=== PATIENT | male | born 1945 | race Caucasian/White ===

== ENCOUNTER 2019-05-13 09:51 | Outpatient (RCR) | payer OTHER, SELFPAY ==
[2019-05-13 10:21] LABS: INR 1.8; Prothrombin Time 20.2 Seconds (11.1-14.7)
== END 2019-08-11 23:59 | disposition home or self-care (01) ==
LOC: ANHLAB 09:51
PROVIDERS: PCP Internal Medicine; Visit Provider Internal Medicine Cardiovascular Disease
DX: I82.90 Acute embolism and thrombosis of unspecified vein (principal)
CPT/HCPCS: 36415; 85610

== ENCOUNTER 2019-09-06 09:15 | Outpatient (CLI) | payer OTHER, SELFPAY ==
[2019-09-06 09:46] LABS: Basophils Percent Auto 0.2 % (0.2-1.2); Eosinophils Percent Auto 0.6 % (0-4.4); Hemoglobin 14.9 g/dL (14.0-18.0); Immature Granulocyte Absolute 0.02 K/mm3 (0.00-0.031); Immature Granulocyte Percent A 0.4 % (0-0.5); Lymphocytes Absolute Auto 1.24 K/mm3 (0.9-3.2); Lymphocytes Percent Auto 24.9 % (18.3-44.2); Mean Corpuscular HGB Conc 34.7 g/dl (32-36); Mean Corpuscular Hemoglobin 31.2 pg (26-34); Mean Corpuscular Volume 90.1 fl (80-100); Mean Platelet Volume 9.2 fl (7.4-10.4); Monocytes Absolute Auto 0.5 K/mm3 (0.1-0.6); Monocytes Percent Auto 10.7 % (2.6-8.5); Neutrophils Absolute Auto 3.1 K/mm3 (1.3-6.7); Neutrophils Percent Auto 63.2 % (45.5-73.1); Platelet Count Result 282 k/mm3 (150-375); Red Blood Count 4.77 M/mm3 (4.6-6.20)
[2019-09-06 09:58] LABS: Alanine Aminotransferase 28 U/L (4-50); Albumin Level 4.3 g/dL (3.5-5.1); Alkaline Phosphatase 72 U/L (38-126); Aspartate Amino Transferase 36 U/L (17-59); Bilirubin,Total 0.7 mg/dL (0.2-1.3); Blood Urea Nitrogen 8 mg/dL (9-20); Calcium 8.5 mg/dL (8.4-10.2); Carbon Dioxide 26 mmol/L (22-30); Chloride 97 mmol/L (98-107); Cholesterol 153 mg/dL (0-200); Estimated Glomerular Filt Rate > 60; Glucose 105 mg/dL (75-110); HDL Direct 91 mg/dL; Potassium 4.4 mmol/L (3.4-5.0); Sodium 131 mmol/L (137-145); Triglycerides 34 mg/dL (<150)
[2019-09-06 10:01] LABS: Hemoglobin A1C 5.6 % (<5.7)
[2019-09-06 10:11] LABS: LDL Cholesterol Direct 58 mg/dL
[2019-09-06 10:19] LABS: Creatinine Urine 84.4 mg/dL
[2019-09-06 10:28] LABS: MALB Creatinine Ratio < 7.1 mg/g (0-30); Microalbumin Urine Random < 6.0 mg/L (0-16.7); Prostate Specific Antigen 6.1 ng/mL (< OR = 4.0); Thyroid Stimulating Hormone 0.618 uIU/mL (0.465-4.680)
== END 2019-09-06 09:16 | disposition home or self-care (01) ==
PROVIDERS: PCP Internal Medicine; Visit Provider Internal Medicine
DX: R97.20 Elevated prostate specific antigen [PSA] (principal); E78.5 Hyperlipidemia, unspecified; I10 Essential (primary) hypertension; Z79.899 Other long term (current) drug therapy; Z12.5 Encounter for screening for malignant neoplasm of prostate
CPT/HCPCS: 36415; 80053; 80061; 82043; 83036; 84153; 84443; 85025; G0103

== ENCOUNTER 2019-10-28 09:56 | Outpatient (RCR) | payer OTHER, SELFPAY ==
[2019-08-20 11:53] LABS: INR 1.7; Prothrombin Time 19.3 Seconds (11.1-14.7)
[2019-09-06 10:00] LABS: INR 1.7; Prothrombin Time 19.3 Seconds (11.1-14.7)
== END 2019-11-18 23:59 | disposition home or self-care (01) ==
LOC: ANHLAB 09:56
PROVIDERS: PCP Internal Medicine; Visit Provider Internal Medicine Cardiovascular Disease
DX: Z51.81 Encounter for therapeutic drug level monitoring (principal); I82.90 Acute embolism and thrombosis of unspecified vein; Z79.01 Long term (current) use of anticoagulants
CPT/HCPCS: 36415; 85610

== ENCOUNTER 2020-03-10 10:26 | Outpatient (CLI) | payer OTHER, SELFPAY ==
[2020-03-10 11:18] LABS: Alanine Aminotransferase 26 U/L (4-50); Albumin Level 4.3 g/dL (3.5-5.1); Alkaline Phosphatase 53 U/L (38-126); Anion Gap 8 mmol/L (8-16); Aspartate Amino Transferase 33 U/L (17-59); Bilirubin,Total 0.8 mg/dL (0.2-1.3); Blood Urea Nitrogen 11 mg/dL (9-20); Calcium 8.4 mg/dL (8.4-10.2); Carbon Dioxide 26 mmol/L (22-30); Chloride 94 mmol/L (98-107); Estimated Glomerular Filt Rate > 60; Glucose 95 mg/dL (75-110); Potassium 4.4 mmol/L (3.4-5.0); Sodium 128 mmol/L (137-145)
[2020-03-10 11:47] LABS: Prostate Specific Antigen 4.9 ng/mL (< OR = 4.0)
== END 2020-03-10 10:27 | disposition home or self-care (01) ==
LOC: ANHLAB 10:29
PROVIDERS: PCP Internal Medicine; Visit Provider Internal Medicine
DX: R97.20 Elevated prostate specific antigen [PSA] (principal); I10 Essential (primary) hypertension
CPT/HCPCS: 36415; 80053; 84153; 85610

== ENCOUNTER 2020-03-10 10:30 | Outpatient (RCR) | payer OTHER, SELFPAY ==
[2020-01-20 12:35] LABS: Prothrombin Time 22.4 Seconds (11.1-14.7)
[2020-03-10 11:15] LABS: INR 1.7; Prothrombin Time 19.7 Seconds (11.1-14.7)
== END 2020-04-19 23:59 | disposition home or self-care (01) ==
LOC: ANHLAB 10:30
PROVIDERS: PCP Internal Medicine; Visit Provider Internal Medicine Cardiovascular Disease
DX: Z51.81 Encounter for therapeutic drug level monitoring (principal); I82.90 Acute embolism and thrombosis of unspecified vein; Z79.01 Long term (current) use of anticoagulants
CPT/HCPCS: 36415; 85610

== ENCOUNTER 2020-06-22 12:07 | Outpatient (RCR) | payer OTHER, SELFPAY ==
[2020-04-21 11:58] LABS: INR 1.9; Prothrombin Time 21.5 Seconds (11.1-14.7)
[2020-05-06 11:42] LABS: INR 1.9; Prothrombin Time 22.3 Seconds (11.1-14.7)
[2020-06-16 11:04] LABS: INR 1.7; Prothrombin Time 20.8 Seconds (11.1-14.7)
[2020-06-22 12:43] LABS: INR 1.8; Prothrombin Time 21.2 Seconds (11.1-14.7)
== END 2020-07-20 23:59 | disposition home or self-care (01) ==
LOC: ANHLAB 12:07
PROVIDERS: PCP Internal Medicine; Visit Provider Internal Medicine Cardiovascular Disease
DX: Z51.81 Encounter for therapeutic drug level monitoring (principal); I82.90 Acute embolism and thrombosis of unspecified vein; Z79.01 Long term (current) use of anticoagulants
CPT/HCPCS: 36415; 85610

== ENCOUNTER 2020-07-06 03:16 | Emergency (ER) | payer OTHER, SELFPAY ==
--- NOTE | ~2020-07-06 | XR_ITS ---
XR chest 1V 07/06/2020 03:59 Indication: Transient alteration of awareness Procedure: AP view of the chest Comparison: Comparison to multiple prior studies sequentially, with oldest reviewed study dated 01/2011. Findings: Status post median sternotomy for CABG. Heart size normal. There is atherosclerosis of the aorta. No focal air space disease, pulmonary edema, pleural effusion or suspected pneumothorax. Impression: 1: No acute cardiopulmonary disease. Reviewed, dictated and finalized at location A. ATRICIAN/MEDICAL DOCTOR Impression: 1: No acute cardiopulmonary disease.
--- NOTE | ~2020-07-06 | CT_ITS ---
EXAMINATION: CT brain wo con DATE: 07/06/2020 03:56 INDICATION: Acute altered mental status. Headache. Patient on Coumadin. TECHNIQUE: Computed tomography (CT) of the head was performed without intravenous contrast. The dose- length product was 681.00 mGy-cm. The mA was adjusted according to patient size. Iterative reconstruc tion technique was employed. COMPARISON: CT dated 11/26/2015 FINDINGS: There is an acute hemorrhage of the right occipital lobe measuring 5 x 4.1 x 2.7 cm with ad jacent vasogenic edema causing effacement of the overlying cortical sulci. There is mild mass effect on the right lateral ventricle. No evidence for herniation. No midline shift. Basilar cisterns are pa tent. There are scattered mild periventricular and subcortical white matter changes, most likely rela ugo to small vessel ischemic disease (microangiopathy). IMPRESSION: 1. Acute right occipital lobe hemorrhage with mild mass effect. [facility] radiologist verbally discussed this case with clinician as per documentation in their report, which was faxed and scanned into PACS with this exam. Reviewed, dictated and finalized at location A. ORK SYSTEMS INTEGRATOR IMPRESSION: 1. Acute right occipital lobe hemorrhage with mild mass effect. [facility] radiologist verbally discussed this case with clinician as per document ation in their report, which was faxed and scanned into PACS with this exam.
[2020-07-06 03:26] VITALS: BP 146/84; PULSE 68; RESP 24; TEMP 36.2; O2SAT 100
--- NOTE | 2020-07-06 03:27 | ECG_ITS ---
Measurements Intervals [place] Rate: 67 P: 36 CO: 172 QRS: 46 QRSD: 92 T: 57 QT: 403 QTc: 426 Interpretive Statements SINUS RHYTHM NORMAL ECG Electronically Signed On 07-06-2020 7:11:05 RUBBER DOWN by Jude Conroy D.O.
[2020-07-06 03:50] LABS: Basophils Percent Auto 0.2 % (0.2-1.2); Eosinophils Absolute Auto 0.1 K/mm3 (0-0.3); Eosinophils Percent Auto 0.8 % (0-4.4); Hematocrit 43.1 % (42.0-52.0); Hemoglobin 14.7 g/dL (14.0-18.0); Immature Granulocyte Absolute 0.04 K/mm3 (0.00-0.031); Immature Granulocyte Percent A 0.5 % (0-0.5); Lymphocytes Percent Auto 21.8 % (18.3-44.2); Mean Corpuscular HGB Conc 34.1 g/dl (32-36); Mean Corpuscular Hemoglobin 31.6 pg (26-34); Mean Corpuscular Volume 92.7 fl (80-100); Mean Platelet Volume 9.1 fl (7.4-10.4); Monocytes Absolute Auto 0.9 K/mm3 (0.1-0.6); Monocytes Percent Auto 10.2 % (2.6-8.5); Neutrophils Absolute Auto 5.8 K/mm3 (1.3-6.7); Neutrophils Percent Auto 66.5 % (45.5-73.1); Platelet Count Result 236 k/mm3 (150-375); Red Blood Count 4.65 M/mm3 (4.6-6.20); Red Cell Distribution Width 13.1 % (11.5-14.5); White Blood Count 8.7 K/mm3 (4.5-10.0)
[2020-07-06 03:50] LABS: Glucose Point of Care 113 (65-105)
--- NOTE | 2020-07-06 03:54 | PC.NURSE ---
pt to CT via stretcher
[2020-07-06 04:02] LABS: Prothrombin Time 23.1 Seconds (11.1-14.7)
[2020-07-06 04:03] LABS: Partial Thromboplastin Time 44.2 SECONDS (22.3-36.8)
[2020-07-06 04:04] LABS: Ammonia < 9 umol/L (9-30); Ethanol < 10 mg/dL (<10); Lactic Acid Reflex 1.2 mmol/L (0.7-2.1)
[2020-07-06 04:05] LABS: Alanine Aminotransferase 21 U/L (4-50); Albumin Level 4.3 g/dL (3.5-5.1); Alkaline Phosphatase 62 U/L (38-126); Anion Gap 5 mmol/L (8-16); Aspartate Amino Transferase 26 U/L (17-59); Bilirubin,Total 0.5 mg/dL (0.2-1.3); Blood Urea Nitrogen 11 mg/dL (9-20); Calcium 8.6 mg/dL (8.4-10.2); Carbon Dioxide 32 mmol/L (22-30); Chloride 93 mmol/L (98-107); Estimated CRCL calculation 85 ml/min; Estimated Glomerular Filt Rate > 60; Glucose 118 mg/dL (75-110); Potassium 4.5 mmol/L (3.4-5.0); Sodium 130 mmol/L (137-145)
--- NOTE | 2020-07-06 04:08 | ED.GENADULT ---
HPI - General Adult General Chief complaint: Altered Mental Status Stated complaint: Blurry vision, confusion Time Seen by Provider: 07/06/20 03:23 History of Present Illness HPI narrative: Patient is 75-year-old gentleman who presents the emergency department with chief complaint of headache and confusion. Patient reports this evening he started getting confused whenever his daughter came home from work around 7PM the noticed this evening it got worse when he tried to get up and take a shower in the middle of the night and the daughter decided to bring him to the emergency department for evaluation. Patient has been on Coumadin and reports that his head does not feel right. The patient is able to answer questions in the room and provide most history but does appear somewhat frustrated. Patient denies any history of trauma Related Data Home Medications Medication Instructions Recorded Confirmed aspirin 81 mg tablet,delayed 81 mg PO DAILY 08/16/19 03/10/20 release warfarin 5 mg tablet 5 mg PO DAILY 08/16/19 03/10/20 Allergies Allergy/AdvReac Type Severity Reaction Status Date / Time Penicillins Allergy Unknown Swelling Verified 03/10/20 08:54 Review of Systems Review of Systems: Narrative: A 10 system review of systems was completed on the patient and is negative except for what is stated in the HPI. Nursing and ancillary documentation was reviewed. 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 HEAD: Normocephalic, atraumatic. EYES: PERRLA and EOMI. ENT: Nares clear, no rhinorrhea or epistaxis. Mucous membranes moist. NECK: Supple. CHEST: Clear to auscultation. No respiratory distress. HEART: Regular rate and rhythm. No murmur heard. Normal peripheral pulses. ABDOMEN: Soft, nontender, nondistended, normal active bowel sounds. EXTREMITIES: Normal range of motion. No edema. SKIN: Warm, dry, no rash. NEURO: No focal deficits. Alert and oriented x3. PSYCH: Normal mood and affect. Course Course Emergency Course: CT head shows evidence of a acute lobar hemorrhage in the right occipital lobe measuring 4.1 x 2.7 x 5.0 cm there is some adjacent edema and resulting effacement of the overlying sulcal and mass-effect of the occipital horn of the right lateral ventricle. There is a small amount of subarachnoid hemorrhage there is no evidence of herniation Patient's INR is 2.0 10 mg of vitamin K was ordered for the patient as well as Kcentra in discussion with the patient and the patient's family the patient had opted to be transferred to [place] Vital Signs Vital signs: Vital Signs Temperature 36.2 C L 07/06/20 03:26 Pulse Rate 68 07/06/20 03:26 Respiratory Rate 24 H 07/06/20 03:26 Blood Pressure 146/84 H 07/06/20 03:26 Pulse Oximetry 100 07/06/20 03:26 Temperature 36.2 C L 07/06/20 03:26 Pulse Rate 69 07/06/20 06:46 Respiratory Rate 23 H 07/06/20 06:46 Blood Pressure 140/83 07/06/20 06:46 Pulse Oximetry 100 07/06/20 06:46 Medical Decision Making Vital Signs Vital Signs: Vital Signs Temperature 36.2 C L 07/06/20 03:26 Pulse Rate 68 07/06/20 03:26 Respiratory Rate 24 H 07/06/20 03:26 Blood Pressure 146/84 H 07/06/20 03:26 Pulse Oximetry 100 07/06/20 03:26 Temperature 36.2 C L 07/06/20 03:26 Pulse Rate 69 07/06/20 06:46 Respiratory Rate 23 H 07/06/20 06:46 Blood Pressure 140/83 07/06/20 06:46 Pulse Oximetry 100 07/06/20 06:46 Lab Data Result diagrams: 07/06/20 03:39 07/06/20 03:39 Labs: Lab Results 07/06/20 07/06/20 07/06/20 Range/Units 03:39
[2020-07-06 04:17] LABS: Troponin I < 0.012 ng/mL (0.000-0.034)
[2020-07-06] MEDS: SODIUM CHLORIDE 0.9% IV 1,000 ML 999 ML IV CONT (04:18)
[2020-07-06] MEDS: PHYTONADIONE ADULT INJ 10 MG in DEXTROSE 5% IN WATER 50 ML 100 MG IVPB (04:18)
[2020-07-06] MEDS: levETIRAcetam 500MG/NACL 100ML 500 MG/100 ML BAG 400 MG IVPB (04:41)
--- NOTE | 2020-07-06 04:46 | PC.NURSE ---
called [facility] to request transport. ETA [id number] [facility] and [facility] declined due to shift change coming up. [facility] declined - no transfer truck on duty.
[2020-07-06 04:51] VITALS: BP 156/81; PULSE 78; RESP 23; O2SAT 99
--- NOTE | 2020-07-06 04:55 | PC.NURSE ---
called [facility] and put trip #[phone] on hold. Patient is waiting for an ICU bed.
[2020-07-06 05:15] VITALS: BP 145/94; PULSE 63; RESP 19; O2SAT 98
[2020-07-06 05:16] LABS: Add Urine Microscopic? YES; Appearance Urine Clear (Clear); Bilirubin Urine Negative (Negative); Blood Urine 2+ (Negative); Color Urine Yellow (Yellow); Glucose Urine UA Negative (Negative); Ketones Urine Negative (Negative); Leukocyte Esterase Ur Negative LEU/UL (Negative); Nitrate Urine Negative (Negative); Protein Urine Negative (Negative); Urobilinogen Urine Negative mg/dL (<2.0); WBC Urine 0-3 /hpf
--- NOTE | 2020-07-06 05:22 | PC.NURSE ---
Called [facility] for transport. ETA [phone]
--- NOTE | 2020-07-06 05:25 | PC.NURSE ---
this rn spoke to vitor barron at [facility] and gave her report on pt. pt is going to room 9410 in the ICU on the main campus. notified. ed press secretary calling for ambulance at this time.
[2020-07-06 05:29] LABS: Benzodiazepines Screen Urine Negative (Negative)
[2020-07-06 05:49] LABS: Amphetamine Screen Urine Negative (Negative); Cannabinoid Screen Urine Positive (Negative); Cocaine Screen Urine Negative (Negative); Methadone Screen Urine Negative (Negative); Opiate Screen Urine Negative (Negative); Phencyclidine Screen Urine Negative (Negative)
[2020-07-06 05:50] VITALS: BP 104/91; PULSE 71; RESP 25; O2SAT 99
[2020-07-06 06:12] VITALS: BP 122/91; PULSE 66; RESP 19; O2SAT 97
[2020-07-06 06:12] LABS: Barbiturate Screen Urine Negative (Negative)
[2020-07-06 06:46] VITALS: BP 140/83; PULSE 69; RESP 23; O2SAT 100
== END 2020-07-06 06:58 | disposition short-term general hospital (02) ==
PROVIDERS: Emergency Provider Emergency Medicine; PCP Internal Medicine
DX: I61.9 Nontraumatic intracerebral hemorrhage, unspecified (principal); F17.200 Nicotine dependence, unspecified, uncomplicated; Z79.82 Long term (current) use of aspirin; Z79.01 Long term (current) use of anticoagulants; Z86.73 Personal history of transient ischemic attack (TIA), and cerebral infarction without residual deficits; Z95.1 Presence of aortocoronary bypass graft; H53.8 Other visual disturbances
CPT/HCPCS: 36415; 70450; 71045; 80053; 80307; 81001; 82140; 82948; 83605; 84484; 85025; 85610; 85730; 93005; 96361; 96365; 96375; 99291; C9132; J1953; J3430; J7030

== ENCOUNTER 2020-08-20 09:44 | Outpatient (CLI) | payer OTHER, SELFPAY ==
[2020-08-20 10:09] LABS: Basophils Percent Auto 0.3 % (0.2-1.2); Eosinophils Percent Auto 0.6 % (0-4.4); Hematocrit 37.7 % (42.0-52.0); Hemoglobin 12.4 g/dL (14.0-18.0); Immature Granulocyte Absolute 0.02 K/mm3 (0.00-0.031); Immature Granulocyte Percent A 0.3 % (0-0.5); Lymphocytes Absolute Auto 1.25 K/mm3 (0.9-3.2); Lymphocytes Percent Auto 18.6 % (18.3-44.2); Mean Corpuscular HGB Conc 32.9 g/dl (32-36); Mean Corpuscular Hemoglobin 30.6 pg (26-34); Mean Corpuscular Volume 93.1 fl (80-100); Mean Platelet Volume 8.8 fl (7.4-10.4); Monocytes Absolute Auto 0.5 K/mm3 (0.1-0.6); Monocytes Percent Auto 7.9 % (2.6-8.5); Neutrophils Absolute Auto 4.9 K/mm3 (1.3-6.7); Neutrophils Percent Auto 72.3 % (45.5-73.1); Platelet Count Result 293 k/mm3 (150-375); Red Blood Count 4.05 M/mm3 (4.6-6.20); Red Cell Distribution Width 13.2 % (11.5-14.5); White Blood Count 6.7 K/mm3 (4.5-10.0)
[2020-08-20 10:27] LABS: Alanine Aminotransferase 30 U/L (4-50); Alkaline Phosphatase 69 U/L (38-126); Anion Gap 6 mmol/L (8-16); Aspartate Amino Transferase 27 U/L (17-59); Bilirubin,Total 0.3 mg/dL (0.2-1.3); Blood Urea Nitrogen 11 mg/dL (9-20); Calcium 8.7 mg/dL (8.4-10.2); Carbon Dioxide 28 mmol/L (22-30); Chloride 100 mmol/L (98-107); Estimated Glomerular Filt Rate > 60; Glucose 112 mg/dL (75-110); Potassium 4.4 mmol/L (3.4-5.0); Sodium 134 mmol/L (137-145)
== END 2020-08-20 09:45 | disposition home or self-care (01) ==
LOC: ANHLAB 09:48
PROVIDERS: PCP Internal Medicine; Visit Provider Internal Medicine
DX: E87.1 Hypo-osmolality and hyponatremia (principal); I10 Essential (primary) hypertension
CPT/HCPCS: 36415; 80053; 85025

== ENCOUNTER 2021-08-09 12:01 | Outpatient (CLI) | payer MEDICARE, SELFPAY ==
[2021-08-09 13:11] LABS: Basophils Percent Auto 0.6 % (0.2-1.2); Eosinophils Percent Auto 0.8 % (0-4.4); Hematocrit 44.3 % (42.0-52.0); Hemoglobin 15.1 g/dL (14.0-18.0); Immature Granulocyte Absolute 0.01 K/mm3 (0.00-0.031); Immature Granulocyte Percent A 0.2 % (0-0.5); Lymphocytes Absolute Auto 1.37 K/mm3 (0.9-3.2); Mean Corpuscular HGB Conc 34.1 g/dl (32-36); Mean Corpuscular Hemoglobin 31.4 pg (26-34); Mean Corpuscular Volume 92.1 fl (80-100); Mean Platelet Volume 9.3 fl (7.4-10.4); Monocytes Absolute Auto 0.5 K/mm3 (0.1-0.6); Monocytes Percent Auto 9.7 % (2.6-8.5); Neutrophils Absolute Auto 3.3 K/mm3 (1.3-6.7); Neutrophils Percent Auto 62.7 % (45.5-73.1); Platelet Count Result 251 k/mm3 (150-375); Red Blood Count 4.81 M/mm3 (4.6-6.20); Red Cell Distribution Width 12.8 % (11.5-14.5); White Blood Count 5.3 K/mm3 (4.5-10.0)
[2021-08-09 13:21] LABS: Alanine Aminotransferase 24 U/L (4-50); Albumin Level 4.5 g/dL (3.5-5.1); Alkaline Phosphatase 66 U/L (38-126); Anion Gap 4 mmol/L (8-16); Aspartate Amino Transferase 25 U/L (17-59); Bilirubin,Total 0.7 mg/dL (0.2-1.3); Blood Urea Nitrogen 7 mg/dL (9-20); Calcium 8.9 mg/dL (8.4-10.2); Carbon Dioxide 27 mmol/L (22-30); Chloride 99 mmol/L (98-107); Cholesterol 141 mg/dL (0-200); Estimated Glomerular Filt Rate > 60; Glucose 97 mg/dL (65-110); HDL Direct 63 mg/dL; Potassium 4.4 mmol/L (3.4-5.0); Sodium 130 mmol/L (137-145); Triglycerides 46 mg/dL (<150)
[2021-08-09 13:33] LABS: LDL Cholesterol Direct 50 mg/dL
[2021-08-09 13:54] LABS: Prostate Specific Antigen 5.6 ng/mL (< OR = 4.0)
[2021-08-09 14:07] LABS: Vitamin D 25 Hydroxy 18.2 ng/mL
== END 2021-08-09 12:02 | disposition home or self-care (01) ==
PROVIDERS: PCP Internal Medicine; Visit Provider Internal Medicine
DX: I25.10 Atherosclerotic heart disease of native coronary artery without angina pectoris (principal); E87.1 Hypo-osmolality and hyponatremia; F41.9 Anxiety disorder, unspecified; I61.9 Nontraumatic intracerebral hemorrhage, unspecified; Z72.89 Other problems related to lifestyle; I71.2 Thoracic aortic aneurysm, without rupture; I25.79 Atherosclerosis of other coronary artery bypass graft(s) with angina pectoris; J44.9 Chronic obstructive pulmonary disease, unspecified; E78.5 Hyperlipidemia, unspecified; I10 Essential (primary) hypertension; R97.20 Elevated prostate specific antigen [PSA]; Z79.899 Other long term (current) drug therapy; Z12.5 Encounter for screening for malignant neoplasm of prostate
CPT/HCPCS: 36415; 80053; 80061; 82306; 84153; 84443; 85025; G0103

== ENCOUNTER 2021-08-16 07:59 | Outpatient (CLI) | payer MEDICARE, SELFPAY ==
--- NOTE | 2021-08-16 08:28 | ECHO_ITS ---
Patient Info Name: Bi Sandoval Age: 76 years : 1945 Gender: Male Ht: 68 in Wt: 180 lbs BSA: 2.00 m2 HR: 71 bpm BP: 133 / 80 mmHg Heart Rhythm: Sinus Rhythm Technical Quality: Fair Exam Date: 08/16/2021 8:39 AM Exam Location: [facility] Patient Status: Outpatient Admit Date: 08/16/2021 Staff Ordering Physician: Vladimir Stockton MD Seismograph Shooter: Annabelle Ledesma RDCS Attending Provider: Vladimir Stockton MD Exam Type: CA echo doppler w bubble study Study Info Indications G45.9 - Transient cerebral ischemic attack, unspecified Complete two-dimensional, color flow and Doppler transthoracic echocardiogram is performed with agitated saline. Contrast/Agitated Saline Contrast/Ag. Saline: Agitated Saline Amount: 20.00 ml New IV Access: Left and Inner Forearm Site Condition: IV removed and No extravasation Summary 1. Left ventricular chamber dimension is mildly enlarged. 2. Left ventricular systolic function is normal, estimated at 55%. 3. There is mildly increased left ventricular wall thickness. 4. The left ventricular diastolic function is grade I diastolic dysfunction. 5. Left atrial chamber dimension is moderately enlarged. 6. There is mild tricuspid valve regurgitation. 7. No pulmonary hypertension, estimated pulmonary arterial systolic pressure is 26 mmHg. 8. No evidence for interatrial shunt with injection of agitated saline with or without Valsalva. Recommendations * Consider transesophageal echocardiogram if clinically indicated. Left Ventricle Left ventricular chamber dimension is mildly enlarged. Left ventricular systolic function is normal, estimated at 55%. There is mildly increased left ventricular wall thickness. The left ventricular diastolic function is grade I diastolic dysfunction. Global longitudinal strain is mildly elevated at -14 %. Right Ventricle Right ventricular chamber dimension is normal. Right ventricular systolic function is normal. Left Atria Left atrial chamber dimension is moderately enlarged. Right Atria Right atrial chamber dimension is mildly enlarged. Atrial Septum No evidence for interatrial shunt with injection of agitated saline with or without Valsalva. Aortic Valve The aortic valve is trileaflet. There is no aortic valve stenosis. There is trace aortic valve regurgitation. Pulmonic Valve The pulmonic valve is not well visualized. Mitral Valve The mitral valve has normal leaflets. There is trace mitral valve regurgitation. The mitral valve annulus is mildly calcified. Tricuspid Valve The tricuspid valve leaflets are normal. There is mild tricuspid valve regurgitation. No pulmonary hypertension, estimated pulmonary arterial systolic pressure is 26 mmHg. Pericardium/Pleural The pericardium appears normal. There is small pericardial effusion. Inferior Vena Cava Normal inferior vena cava with >50% collapse upon inspiration consistent with normal right atrial pressure, 5 mmHg. Aorta The aortic root size at the sinus of Valsalva is mildly dilated. There is mild aortic atherosclerosis. Left Ventricular Outflow Tract Name Value Normal LVOT 2D LVOT Diameter
== END 2021-08-16 08:00 | disposition home or self-care (01) ==
PROVIDERS: PCP Internal Medicine; Visit Provider Internal Medicine
DX: G45.9 Transient cerebral ischemic attack, unspecified (principal)
CPT/HCPCS: 93306; 96375

== ENCOUNTER 2021-12-08 09:45 | Outpatient (CLI) | payer OTHER, SELFPAY ==
[2021-12-08 10:41] LABS: Alanine Aminotransferase 27 U/L (6-50); Albumin Level 4.5 g/dL (3.5-5.1); Alkaline Phosphatase 67 U/L (38-126); Anion Gap 7 mmol/L (8-16); Aspartate Amino Transferase 28 U/L (17-59); Bilirubin,Total 0.6 mg/dL (0.2-1.3); Blood Urea Nitrogen 9 mg/dL (9-20); Calcium 8.5 mg/dL (8.4-10.2); Carbon Dioxide 27 mmol/L (22-30); Chloride 98 mmol/L (98-107); Estimated Glomerular Filt Rate > 60; Glucose 107 mg/dL (65-110); Potassium 4.7 mmol/L (3.4-5.0); Sodium 132 mmol/L (137-145)
[2021-12-08 11:13] LABS: Prostate Specific Antigen 4.7 ng/mL (< OR = 4.0)
[2021-12-08 11:36] LABS: Vitamin D 25 Hydroxy 52.9 ng/mL
== END 2021-12-08 09:46 | disposition home or self-care (01) ==
PROVIDERS: PCP Internal Medicine; Visit Provider Internal Medicine
DX: R97.20 Elevated prostate specific antigen [PSA] (principal); E55.9 Vitamin D deficiency, unspecified; F41.9 Anxiety disorder, unspecified; I10 Essential (primary) hypertension
CPT/HCPCS: 36415; 80053; 82306; 84153

== ENCOUNTER 2022-09-14 14:35 | Outpatient (CLI) | payer OTHER, SELFPAY ==
[2022-09-14 15:35] LABS: Alanine Aminotransferase 28 U/L (6-50); Albumin Level 3.9 g/dL (3.5-5.1); Alkaline Phosphatase 59 U/L (38-126); Anion Gap 5 mmol/L (8-16); Aspartate Amino Transferase 27 U/L (17-59); Bilirubin,Total 0.6 mg/dL (0.2-1.3); Blood Urea Nitrogen 10 mg/dL (9-20); Calcium 8.4 mg/dL (8.4-10.2); Carbon Dioxide 26 mmol/L (22-30); Chloride 99 mmol/L (98-107); Estimated Glomerular Filt Rate > 60; Glucose 97 mg/dL (65-110); Potassium 4.3 mmol/L (3.4-5.0); Sodium 130 mmol/L (137-145)
[2022-09-14 16:04] LABS: Thyroid Stimulating Hormone 0.956 uIU/mL (0.465-4.680)
[2022-09-16 12:21] LABS: Levetiracetam Keppra 31.2 mcg/mL (6.0-46.0)
== END 2022-09-14 14:36 | disposition home or self-care (01) ==
PROVIDERS: PCP Internal Medicine; Visit Provider Internal Medicine
DX: F10.10 Alcohol abuse, uncomplicated (principal); I10 Essential (primary) hypertension; G40.909 Epilepsy, unspecified, not intractable, without status epilepticus
CPT/HCPCS: 36415; 80053; 80177; 82607; 84443

== ENCOUNTER 2022-10-06 13:12 | Emergency (ER) | payer OTHER, SELFPAY ==
[2022-10-06 13:14] VITALS: BP 152/78; PULSE 71; RESP 16; TEMP 36.1; O2SAT 100
--- NOTE | 2022-10-06 13:25 | ECG_ITS ---
Measurements Intervals [place] Rate: 77 P: 59 MT: 180 QRS: 61 QRSD: 96 T: 53 QT: 362 QTc: 410 Interpretive Statements SINUS RHYTHM WITH PREMATURE ATRIAL CONTRACTION COMPARED TO ECG 07/06/2020 03:30:54 NO SIGNIFICANT CHANGES Electronically Signed On 10-06-2022 14:24:15 CDT by Janie Mcduffie M.D.
[2022-10-06 13:45] VITALS: BP 146/70; PULSE 76; RESP 14; O2SAT 98
[2022-10-06 13:48] LABS: Basophils Percent Auto 0.2 % (0.2-1.2); Eosinophils Percent Auto 0.4 % (0-4.4); Hematocrit 46.5 % (42.0-52.0); Hemoglobin 15.8 g/dL (14.0-18.0); Immature Granulocyte Absolute 0.02 K/mm3 (0.00-0.031); Immature Granulocyte Percent A 0.2 % (0-0.5); Lymphocytes Absolute Auto 1.43 K/mm3 (0.9-3.2); Lymphocytes Percent Auto 17.4 % (18.3-44.2); Mean Corpuscular Volume 94.1 fl (80-100); Mean Platelet Volume 9.2 fl (7.4-10.4); Monocytes Absolute Auto 0.6 K/mm3 (0.1-0.6); Monocytes Percent Auto 6.7 % (2.6-8.5); Neutrophils Absolute Auto 6.2 K/mm3 (1.3-6.7); Neutrophils Percent Auto 75.1 % (45.5-73.1); Platelet Count Result 218 k/mm3 (150-375); Red Blood Count 4.94 M/mm3 (4.6-6.20); Red Cell Distribution Width 13.2 % (11.5-14.5); White Blood Count 8.2 K/mm3 (4.5-10.0)
--- NOTE | 2022-10-06 13:58 | ED.SEIZURE ---
HPI - Seizure General Chief Complaint: Seizure Stated Complaint: seizure Time Seen by Provider: 10/06/22 13:28 History of Present Illness HPI Narrative: This is a 77-year-old male past history of stroke and intracranial hemorrhage, who presents to the emergency department stating he is having seizures. He states this began today, approximately an hour prior to arrival. He states his seizures consist of rhythmic muscle contractions without loss of consciousness or preceding symptoms. He states he is following a neurologist for this but does not know their name. Related Data Home Medications Medication Instructions Recorded Confirmed aspirin 325 mg tablet 325 mg PO DAILY 07/27/21 09/13/22 Allergies Allergy/AdvReac Type Severity Reaction Status Date / Time Penicillins Allergy Unknown Swelling Verified 09/13/22 13:14 Review of Systems Review of Systems: CONSTITUTIONAL: Denies fever, chills, or sweats. CARDIOVASCULAR: Denies chest pain, palpitations, or edema. RESPIRATORY: Denies cough or dyspnea. GASTROINTESTINAL: Denies abdominal pain, nausea, vomiting, or diarrhea. GENITOURINARY: Denies dysuria or hematuria. SKIN: Denies rash or itching. MUSCULOSKELETAL: Denies back pain, joint pain, or myalgia. NEUROLOGIC: Denies headache, numbness, dizziness, or weakness. PSYCHIATRIC: Denies anxiety or depression. 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 EYES: PERRLA and EOMI. ENT: Nares clear, no rhinorrhea or epistaxis. Mucous membranes moist. Oropharynx without tonsillar hypertrophy exudate or other lesions. CHEST: Clear to auscultation. No respiratory distress. No wheezes rales or rhonchi HEART: Regular rate and rhythm. No murmur heard. Normal peripheral pulses. ABDOMEN: Soft, nontender, nondistended, normal active bowel sounds. EXTREMITIES: Normal range of motion. No edema. SKIN: Warm, dry, no rash. NEURO: No focal deficits. Alert and oriented x3. Strength 5/5 in all extremities, sensation intact bilaterally, the patient has intermittent episodes of full body contraction lasting approximately 5 to 10 seconds while maintaining consciousness. PSYCH: Normal mood and affect. Course Course Emergency Course: 14:41 - Lactic acid slightly elevated at 2.4. CBC unremarkable. Chemistries demonstrate mild hyponatremia at 132 but are otherwise unremarkable. Review of documentation from the patient's primary care provider notes patient is on Keppra. I do not see any documentation from neurology. The patient exhibited rhythmic bodily contractions in the room, these stopped with reassurance and calming by me. My suspicion for true seizures is decreased at this time. 15:35 - I discussed the findings with the patient. He was previously scheduled for
[2022-10-06 14:01] LABS: Lactic Acid Reflex 2.4 mmol/L (0.7-2.0)
[2022-10-06 14:02] LABS: Alanine Aminotransferase 25 U/L (6-50); Albumin Level 4.9 g/dL (3.5-5.1); Alkaline Phosphatase 67 U/L (38-126); Anion Gap 9 mmol/L (8-16); Aspartate Amino Transferase 28 U/L (17-59); Bilirubin,Total 0.7 mg/dL (0.2-1.3); Blood Urea Nitrogen 9 mg/dL (9-20); Calcium 8.9 mg/dL (8.4-10.2); Carbon Dioxide 29 mmol/L (22-30); Chloride 94 mmol/L (98-107); Creatine Kinase 141 U/L (55-170); Estimated Glomerular Filt Rate > 60; Glucose 82 mg/dL (65-110); Potassium 4.1 mmol/L (3.4-5.0); Sodium 132 mmol/L (137-145)
[2022-10-06 14:15] VITALS: BP 151/77; PULSE 66; RESP 14; O2SAT 98
[2022-10-06 15:18] VITALS: PULSE 74
[2022-10-06] MEDS: levETIRAcetam 1000MG/NACL100ML 1,000 MG/100 ML BAG 400 MG IVPB (15:58)
[2022-10-06] MEDS: LACTATED RINGERS 1,000 ML 999 ML IV CONT (15:59)
[2022-10-06 16:46] LABS: Reflex Lactic Acid Yes or No Add Lactic
[2022-10-06 16:53] VITALS: BP 159/89; PULSE 67; RESP 20; O2SAT 98
== END 2022-10-06 17:20 | disposition home or self-care (01) ==
PROVIDERS: Emergency Provider Preventive Medicine Aerospace Medicine; PCP Internal Medicine
DX: G40.909 Epilepsy, unspecified, not intractable, without status epilepticus (principal); I25.79 Atherosclerosis of other coronary artery bypass graft(s) with angina pectoris; J44.9 Chronic obstructive pulmonary disease, unspecified; I25.10 Atherosclerotic heart disease of native coronary artery without angina pectoris; I10 Essential (primary) hypertension; E78.5 Hyperlipidemia, unspecified; E55.9 Vitamin D deficiency, unspecified; F41.9 Anxiety disorder, unspecified; Z95.5 Presence of coronary angioplasty implant and graft; F17.210 Nicotine dependence, cigarettes, uncomplicated
CPT/HCPCS: 36415; 80053; 82550; 83605; 85025; 93005; 96361; 96374; 99284; J1953; J7120

== ENCOUNTER 2022-10-25 07:15 | Outpatient (CLI) | payer OTHER, SELFPAY ==
--- NOTE | 2022-10-25 09:08 | P.NEURO_ITS ---
Neurology EEG Report General Information Date of Study: 10/25/22 TEST Routine EEG DIAGNOSIS Epilepsy CONDITION OF RECORDING Awake, frequent eye fluttering. Patient unable to complete entire 20 minutes of recording. EEG NUMBER [id number] CLINICAL HISTORY Patient reports about a year ago he had his firs seizure. The episode was described as shaking, tongue biting, and then sleeping for hours afterwards. He has had three more similar episodes since then. EEG DESCRIPTION During the awake state with eyes closed the background consists of 8 Hz posterior dominant rhythm which attenuates appropriately with eye opening. The recording is continuous. There is a well developed anterior-posterior gradient. No significant asymmetries of background activities are noted. Patient did not enter drowsiness or stage II sleep. There are no epileptiform discharges or seizures during this recording. Photic stimulation did not elicit any abnormal photoparoxysmal response. IMPRESSION This is a normal routine EEG recorded in awake state. There are no electrographic seizures identified, nor are there any epileptiform discharges. Please note that a normal EEG cannot exclude a seizure disorder. Clinical cor relation is recommended.
== END 2022-10-25 07:16 | disposition home or self-care (01) ==
PROVIDERS: PCP Family Medicine; Visit Provider Internal Medicine
DX: G40.909 Epilepsy, unspecified, not intractable, without status epilepticus (principal)
CPT/HCPCS: 95816

== ENCOUNTER 2024-04-05 08:12 | Outpatient (CLI) | payer OTHER, SELFPAY ==
--- NOTE | ~2024-04-05 | XR_ITS ---
XR hip LT 2V w AP pelvis 04/05/2024 08:38 Indication: Left hip pain Procedure: AP pelvis and 2 views left hip Comparison: 04/09/2011 Findings: There is severe osteoarthritis of the hips. Pelvic rings are intact. There is extensive ath erosclerosis. No soft tissue abnormality. No foreign bodies. No acute fracture or traumatic malalignm ent. Impression: 1: Severe bilateral osteoarthritis of the hips. Reviewed, dictated and finalized at location B. Impression: 1: Severe bilateral osteoarthritis of the hips.
== END 2024-04-05 08:13 | disposition home or self-care (01) ==
PROVIDERS: PCP Family Medicine; Visit Provider Nurse Practitioner Family
DX: M16.0 Bilateral primary osteoarthritis of hip (principal)
CPT/HCPCS: 73502